=== PATIENT | female | born 1980 | race Caucasian/White ===

== ENCOUNTER → 2016-04-04 | Outpatient (REF) | payer MEDICAID | LOC: M LAB REF 12:59 | PROVIDERS: ATTEND Physician Assistant | DX: L02.512 Cutaneous abscess of left hand (principal) ==

== ENCOUNTER 2017-10-22 10:28 | Emergency (ER) | payer MEDICAID, SELFPAY, OTHER | END 2017-10-22 12:28 | disposition home or self-care (01) | LOC: M ED 10:28 | DX: S60.511A Abrasion of right hand, initial encounter (principal); S90.811A Abrasion, right foot, initial encounter; Y04.8XXA Assault by other bodily force, initial encounter; Y92.410 Unspecified street and highway as the place of occurrence of the external cause; R01.1 Cardiac murmur, unspecified; F17.210 Nicotine dependence, cigarettes, uncomplicated | CPT/HCPCS: 73630 ==

== ENCOUNTER → 2018-04-26 | Outpatient (CLI) | payer OTHER ==
--- NOTE | 2018-04-26 19:48 | REP ---
Left ankle four views : There is no fracture or dislocation. Mineralization and joint spaces are normal. There are no calcifications or foreign bodies. Impression: Negative left ankle . Electronically Signed by Je Henson MD 04/26/2018 07:39 P
--- NOTE | 2018-04-26 19:49 | REP ---
Left foot four views: There is an nondisplaced intra-articular spiral fracture at the base of the fifth digit metatarsal. There is no dislocation. The skeletal soft tissue structures otherwise are unremarkable. Electronically Signed by Je Henson MD 04/26/2018 07:40 P
== END ==
LOC: M WUC 18:33
PROVIDERS: ATTEND Physician Assistant
DX: S92.355A Nondisplaced fracture of fifth metatarsal bone, left foot, initial encounter for closed fracture (principal); X58.XXXA Exposure to other specified factors, initial encounter; Y92.9 Unspecified place or not applicable

== ENCOUNTER 2019-06-25 00:38 | Emergency (ER) | payer OTHER ==
[~2019-06-25] VITALS: Ht 177.8 cm; Wt 88.6 kg
[2019-06-25] MEDS ORDERED: LIDOCAINE 1% MDV 20ML VIAL IM ONE (01:15)
[2019-06-25] MEDS ORDERED: BACITRACIN OINTMENT 30GM TUBE TOP STA (02:13)
[2019-06-25 02:25] VITALS: BP 137/88
--- NOTE | 2019-06-25 08:31 | REP ---
REASON: Trauma. Assess for foreign body. AP and lateral views were obtained. FINDINGS: There is no radiopaque foreign body. Electronically Signed by Larry Fay DO 06/25/2019 08:56 A
== END 2019-06-25 02:53 | disposition home or self-care (01) ==
LOC: M ED 00:38
DX: S61.511A Laceration without foreign body of right wrist, initial encounter (principal); S01.81XA Laceration without foreign body of other part of head, initial encounter; S61.411A Laceration without foreign body of right hand, initial encounter; W25.XXXA Contact with sharp glass, initial encounter; Y04.8XXA Assault by other bodily force, initial encounter; Y92.019 Unspecified place in single-family (private) house as the place of occurrence of the external cause; R01.1 Cardiac murmur, unspecified; F10.10 Alcohol abuse, uncomplicated; F17.210 Nicotine dependence, cigarettes, uncomplicated

== ENCOUNTER 2019-09-16 18:43 | Emergency (ER) | payer OTHER ==
[~2019-09-16] VITALS: Ht 177.8 cm; Wt 100.7 kg
[2019-09-16 18:44] VITALS: BP 138/95
[2019-09-16] MEDS ORDERED: LIDOCAINE 1% MDV 20ML VIAL SC ONE (19:15)
[2019-09-16] MEDS ORDERED: BACI500O21 TOP (19:25)
[2019-09-16] MEDS ORDERED: KEFL500C17 PO (19:25)
== END 2019-09-16 19:35 | disposition home or self-care (01) ==
LOC: M ED 18:43
DX: S51.851A Open bite of right forearm, initial encounter (principal); W54.0XXA Bitten by dog, initial encounter; Y92.410 Unspecified street and highway as the place of occurrence of the external cause; Y93.9 Activity, unspecified; Y99.9 Unspecified external cause status; F17.200 Nicotine dependence, unspecified, uncomplicated; F12.90 Cannabis use, unspecified, uncomplicated

== ENCOUNTER → 2022-04-09 | Outpatient (REF) | payer OTHER ==
[~2022-04-09] MED LIST: BACI500O21 TOP; KEFL500C17 PO
== END ==
LOC: M LAB REF 12:31
PROVIDERS: ATTEND Nurse Practitioner Family
DX: N39.0 Urinary tract infection, site not specified (principal)

== ENCOUNTER → 2022-07-09 | Outpatient (CLI) | payer MEDICAID | LOC: M OUTALCOH 12:34 | PROVIDERS: ATTEND Psychiatry & Neurology Psychiatry | DX: F10.10 Alcohol abuse, uncomplicated (principal) ==

== ENCOUNTER 2022-07-21 09:55 | Outpatient (RCR) | payer MEDICAID | END 2022-08-13 | LOC: M OUTALCOH 09:55 | PROVIDERS: ATTEND Psychiatry & Neurology Psychiatry | DX: Z03.89 Encounter for observation for other suspected diseases and conditions ruled out (principal); F17.200 Nicotine dependence, unspecified, uncomplicated ==